=== PATIENT | male | born 1975 | race Two or more races ===

== ENCOUNTER 2023-03-10 10:13 | Emergency (ER) | payer OTHER ==
[~2023-03-10] VITALS: Ht 165.1 cm; Wt 80.7 kg
--- NOTE | 2023-03-10 10:15 | NUR ---
RECEIVED PT 48 YRS MALE S/P SLEPT , TRIPT AND FALL C/O PAIN ON RT HAND AND ARM NO SWALEN NO DIFFORMITY
--- NOTE | 2023-03-10 10:35 | NUR ---
DR. PATTERSON AT BED SIDE SPOOKING WITH PT
--- NOTE | 2023-03-10 10:40 | NUR ---
X RAY AT BED SIDE DONE
--- NOTE | 2023-03-10 11:00 | NUR ---
PAIN REDUCED FEELING BEATER
[2023-03-10] MEDS ORDERED: KETO10TA2 PO (11:11)
--- NOTE | 2023-03-10 11:25 | NUR ---
DR. PATTERSON AT BED SIDE SPOOKING WITH PT
--- NOTE | 2023-03-10 11:36 | NUR ---
Patient discharged to home in stable condition. Written and verbal after care instructions given. Patient verbalizes understanding of instruction.
[2023-03-10 11:54] VITALS: BP 164/86
== END 2023-03-10 11:57 | disposition home or self-care (01) ==
LOC: ER 10:18
DX: M79.644 Pain in right finger(s) (principal); M25.531 Pain in right wrist; M25.521 Pain in right elbow; I10 Essential (primary) hypertension; F17.210 Nicotine dependence, cigarettes, uncomplicated; W01.0XXA Fall on same level from slipping, tripping and stumbling without subsequent striking against object, initial encounter; Y93.89 Activity, other specified; Y92.89 Other specified places as the place of occurrence of the external cause; Y99.8 Other external cause status
CPT/HCPCS: 73080-TC; 73110; 73130-TC